=== PATIENT | male | born 1935 | race Caucasian/White ===

== ENCOUNTER 2018-01-16 08:44 | Day surgery (SDC) | payer MEDICARE ==
[2018-01-16] VITALS (8 sets, daily range): BP systolic 144–174; BP diastolic 83–96; PULSE 70–85; RESP 16–18; TEMP 97.7–98.3; O2SAT 93–95
[~2018-01-16] VITALS: Ht 180.3 cm; Wt 77.0 kg
[2018-01-16] MEDS ORDERED: TYLE325T PO (09:30)
[2018-01-16] MEDS ORDERED: ZOLO100T PO (09:30)
[2018-01-16] MEDS ORDERED: VITALIQ27 (09:30)
[2018-01-16] MEDS ORDERED: PROT40TA PO (09:30)
[2018-01-16] MEDS ORDERED: FLUT1INH INH (09:30)
[2018-01-16] MEDS ORDERED: ASPI-516 CHEW (09:30)
[2018-01-16] MEDS ORDERED: OXYC1TAB63 PO (09:30)
[2018-01-16 10:08] LABS: BASOPHIL % 0.6 % (0.0-2.0); EOSINOPHIL # 0.1 TH/MM3 (0-0.4); EOSINOPHIL % 1.4 % (0.0-4.0); HEMOGLOBIN 12.6 GM/DL (13.0-17.0); LYMPH % 11.8 % (9.0-44.0); LYMPHOCYTE # 0.7 TH/MM3 (1.0-4.8); MEAN CELL VOLUME 86.2 FL (80.0-100.0); MEAN CORPUSCULAR HEMOGLOBIN 28.6 PG (27.0-34.0); MEAN CORPUSCULAR HGB CONC 33.1 % (32.0-36.0); MEAN PLATELET VOLUME 7.5 FL (7.0-11.0); MONO % 5.6 % (0.0-8.0); MONOCYTE # 0.3 TH/MM3 (0-0.9); NEUT % 80.6 % (16.0-70.0); PLATELET COUNT 230 TH/MM3 (150-450); RED BLOOD COUNT 4.41 MIL/MM3 (4.50-5.90); RED CELL DISTRIBUTION WIDTH 15.3 % (11.6-17.2); WHITE BLOOD COUNT 6.2 TH/MM3 (4.0-11.0)
[2018-01-16 10:16] LABS: INTERNATIONAL NORMALIZED RATIO 1.1 RATIO; PROTHROMBIN TIME - PATIENT 10.7 SEC (9.8-11.6)
[2018-01-16] MEDS ORDERED: MIDAZOLAM HCL 5 MG/5 ML VIAL ONE (11:29)
[2018-01-16] MEDS ORDERED: fentaNYL CITRATE 250 MCG/5 ML AMP ONE (11:29)
[2018-01-16] MEDS ORDERED: SODIUM CHLOR 0.9% 1000 ML IV SCH (11:30)
--- NOTE | 2018-01-16 12:14 | PD.RAD ---
Post CT Procedure Prog Note Pre Procedure Diagnosis: (1) Liver mass, left lobe Post Procedure Diagnosis: (1) Liver mass, left lobe Procedure Date: Jan 16, 2018 Supervising Radiologist: Adryan Mobley Anesthesia: Local, Analgesia, Conscious Sedation Plan of Activity Patient to Unit: ROPU Patient Condition: Good See PACS Report for procedural detail/treatment Biopsy Imaging Guidance: CT Side: Left Biopsy Procedure: Liver Specimen: Core Biopsy (x 2) Adryan Mobley MD Jan 16, 2018 12:14
--- NOTE | 2018-01-16 14:48 | RADRPT ---
EXAM DATE/TIME: 01/16/2018 11:40 [place] COMPARISON: No previous studies available for comparison. INDICATIONS : Liver mass. SEDATION TIME: 30 minutes BIOPSY SITE: Right MEDICATION(S): 1.) 4 mg midazolam (Versed) IV 2.) 200 mcg fentanyl (Sublimaze) IV DEVICE(S): 1.) 18 gauge Temno core biopsy needle MEDICAL HISTORY : None. SURGICAL HISTORY : None. ENCOUNTER: Initial ACUITY: 1 day PAIN SCORE: 0/10 LOCATION: Right A total of two core specimen(s) were obtained and sent to the laboratory for pathologic evaluation. PROCEDURE: 1. CT guided liver biopsy. 2. Conscious sedation with continuous EKG and oximetry monitoring. 3. EKG and oximetry remained stable throughout the procedure. Prior to the procedure informed consent was obtained. Any appropriate prior imaging studies were rev iewed. Using automated exposure control and adjustment of the mA and/or kV according to patient size, radiat ion dose was kept as low as reasonably achievable to obtain optimal diagnostic quality images. DICOM format image data is available electronically for review and comparison. The site was prepped in a sterile fashion. Full sterile technique was used, including cap, mask, sean rile gloves and gown and a large sterile sheet. Hand hygiene and 2% chlorhexidine and/or betadine/al cohol prep was utilized per protocol for cutaneous antisepsis. The skin and subcutaneous tissues wer e infiltrated with local anesthetic solution. With CT guidance the previously identified target was localized. Biopsy was performed using the presc ribed needle as above. Adequate hemostasis was obtained with compression at the puncture site. Follow-up CT scan reveals no hemorrhage. The patient tolerated the procedure well and there were no complications. The patient was returned to the Radiology Outpatient Unit in stable condition. CONCLUSION: Uncomplicated CT guided biopsy. 2, 18 gauge core biopsies were obtained Adryan Mobley MD on January 16, 2018 at 14:42 Board Certified Radiologist. This report was verified electronically.
== END 2018-01-16 15:00 | disposition home or self-care (01) ==
LOC: HRAD 08:44 → HRIP 08:44 → HRAD 15:00
PROVIDERS: ATTEND Family Medicine
DX: R16.0 Hepatomegaly, not elsewhere classified (principal)
CPT/HCPCS: 47000; 77012; 85025; 85610; 85730; 88307; 88341; 88342; 99152; 99153; J2250; J3010